=== PATIENT | female | born 1950 | race American Indian/Alaskan Native ===

== ENCOUNTER 2016-11-28 07:00 | Day surgery (SDC) | payer MEDICARE ==
[2016-11-19 09:55] VITALS: BMI 28.3
[2016-11-28 07:32] VITALS: TEMP 98
[2016-11-28] MEDS ORDERED: Propofol 10 mg/ml Inj (20 ML) ONE ×2 (08:09→08:20)
[2016-11-28] MEDS ORDERED: Midazolam 2 MG/2 ML VIAL ONE (08:10)
[2016-11-28] MEDS ORDERED: Sodium Chloride 0.9% 1,000 ML IV SCH (09:00)
[2016-11-28 09:46] VITALS: BP 158/72; PULSE 56; RESP 16
[2016-11-28 11:16] VITALS: O2SAT 99
== END 2016-11-28 10:20 | disposition home or self-care (01) ==
LOC: ENDO 07:00
PROVIDERS: ATTEND Specialist
DX: Z12.11 Encounter for screening for malignant neoplasm of colon (principal); K63.5 Polyp of colon; K57.30 Diverticulosis of large intestine without perforation or abscess without bleeding; K64.8 Other hemorrhoids
CPT/HCPCS: 45380; 88305; J2250; J2704; J7040 ×2